=== PATIENT | male | born 1995 | race Caucasian/White ===

== ENCOUNTER 2017-06-12 16:48 | Emergency (ER) | payer SELFPAY ==
[2017-06-12] MEDS ORDERED: CLEOCIN 900 MG/50 mL 900 MG/50 ML BAG IV ONE (18:46)
[2017-06-12] MEDS ORDERED: NACL 0.9% 1000 ML 1,000 ML IV ONE (18:47)
[2017-06-12 19:10] LABS: Basophils % (Auto) 0.3 % (0.0-1.8); Eosinophils % (Auto) 0.1 % (0.0-4.3); Hemoglobin 14.5 gm/dl (11.8-15.2); Mean Corpuscular HGB Conc 35 % (32-34); Mean Corpuscular Hemoglobin 31 pg (28-32); Mean Corpuscular Volume 90 fl (84-94); Platelet Count 271 K/mm3 (140-440); Red Blood Count 4.66 M/mm3 (3.65-5.03); Red Cell Distribution Width 11.9 % (13.2-15.2); White Blood Count 9.8 K/mm3 (4.5-11.0)
[2017-06-12 19:30] LABS: Erythrocyte Sedimentation Rate 53 mm/Hr (0-20)
[2017-06-12 19:33] LABS: Alanine Aminotransferase 13 units/L (7-56); Albumin 4.2 g/dL (3.9-5); Albumin/Globulin Ratio 0.9 %; Alkaline Phosphatase 54 units/L (35-129); Anion Gap 20 mmol/L; BUN/Creatinine Ratio 15.55; Blood Urea Nitrogen 14 mg/dL (9-20); Calcium 9.4 mg/dL (8.4-10.2); Carbon Dioxide 26 mmol/L (22-30); Chloride 98.2 mmol/L (98-107); Glucose 81 mg/dL (75-100); Potassium 3.9 mmol/L (3.6-5.0); Sodium 140 mmol/L (137-145); Total Protein 8.9 g/dL (6.3-8.2)
--- NOTE | 2017-06-12 19:47 | Emergency Department Report ---
- General Chief complaint: Skin/Abscess/Foreign Body Stated complaint: ABSCESS Time Seen by Provider: 06/12/17 18:43 Source: patient Mode of arrival: Ambulatory Limitations: No Limitations - History of Present Illness Initial comments: pt is a22 y/o aam who hx of abscess buttocks x 1 yr last seen at [facility] for I&D 1 month ago , pt advises that he completed antibiotic however wound is still draining, pt endorses fever and chills at night , pt denies fever or chills at this time , pt advisies wound drainage yellow foul smelling. for past month. Onset/Timin -: year(s) Tetanus Up to Date: yes Location: buttocks (left gluteal fold ) Severity scale (0 -10): 5 Quality: burning, aching Consistency: constant Improves with: none Worsens with: palpation, movement, other (sitting on buttocks) Context: other (abscess for last year ) Associated symptoms: fever, chills, itching Treatments Prior to Arrival: bandages, antibiotic, other (tx at [facility] ) - Related Data Previous Rx's Medication Instructions Recorded Last Taken Type Clindamycin [Clindamycin CAP] 300 mg PO Q6H #40 capsule 06/12/17 Unknown Rx Lidocaine Topical 2% [Xylocaine 30 ml MM 2XWHS PRN #1 tube 06/12/17 Unknown Rx Topical 2%] traMADol [Ultram 50 MG tab] 50 mg PO Q6HR PRN #15 tablet 06/12/17 Unknown Rx Allergies Allergy/AdvReac Type Severity Reaction Status Date / Time No Known Allergies Allergy Unverified 06/12/17 17:20 Abscess Boil HPI - HPI Chief Complaint: Skin/Abscess/Foreign Body Stated Complaint: ABSCESS Time Seen by Provider: 06/12/17 18:43 Home Medications: Previous Rx's Medication Instructions Recorded Last Taken Type Clindamycin [Clindamycin CAP] 300 mg PO Q6H #40 capsule 06/12/17 Unknown Rx Lidocaine Topical 2% [Xylocaine 30 ml MM 2XWHS PRN #1 tube 06/12/17 Unknown Rx Topical 2%] traMADol [Ultram 50 MG tab] 50 mg PO Q6HR PRN #15 tablet 06/12/17 Unknown Rx Allergies/Adverse Reactions: Allergies Allergy/AdvReac Type Severity Reaction Status Date / Time No Known Allergies Allergy Unverified 06/12/17 17:20 ED Review of Systems ROS: Stated complaint: ABSCESS Other details as noted in HPI Constitutional: denies: chills, fever Eyes: denies: eye pain, eye discharge, vision change ENT: denies: ear pain, throat pain Respiratory: denies: cough, shortness of breath, wheezing Cardiovascular: denies: chest pain, palpitations Endocrine: no symptoms reported Gastrointestinal: denies: abdominal pain, nausea, diarrhea Genitourinary: denies: urgency, dysuria Musculoskeletal: denies: back pain, joint swelling, arthralgia Skin: lesions (abscess left buttocks ) Neurological: denies: headache, weakness, paresthesias Psychiatric: denies: anxiety, depression Hematological/Lymphatic: denies: easy bleeding, easy bruising ED Past Medical Hx - Past Medical History Previous Medical History?: No Hx Renal Disease: Yes - Surgical History Past Surgical History?: Yes Hx Appendectomy: Yes - Social History Smoking Status: Never Smoker Substance Use Type: Marijuana - Medications Home Medications: Home Medications Medication Instructions Recorded Confirmed Last Taken Type Clindamycin [Clindamycin CAP] 300 mg PO Q6H #40 capsule 06/12/17 Unknown Rx Lidocaine Topical 2% [Xylocaine 30 ml MM 2XWHS PRN #1 tube 06/12/17 Unknown Rx Topical 2%] traMADol [Ultram 50 MG tab] 50 mg PO Q6HR PRN #15 tablet 06/12/17 Unknown Rx ED Physical Exam - General Limitations: No Limitations General appearance: alert, in no apparent distress - Head Head exam: Present: atraumatic, normocephalic - Eye Eye exam: Present: normal appearance - ENT ENT exam: Present: mucous membranes moist - Neck Neck exam: Present: normal inspection - Respiratory Respiratory exam: Present: normal lung sounds bilaterally. Absent: respiratory distress - Cardiovascular Cardiovascular Exam: Present: regular rate, normal rhythm. Absent: systolic murmur, diastolic murmur, rubs, gallop - GI/Abdominal GI/Abdominal exam: Present: soft, normal bowel sounds - Rectal Rectal exam: Present: normal rectal tone, tenderness, other (condyloma ) - Extremities Exam Extremities exam: Present: normal inspection - Back Exam Back exam: Present: normal inspection, full ROM. Absent: tenderness, CVA tenderness (R), CVA tenderness (L), muscle spasm, paraspinal tenderness, vertebral tenderness, rash noted - Neurological Exam Neurological exam: Present: alert, oriented X3, CN II-XII intact, normal gait, reflexes normal - Psychiatric Psychiatric exam: Present: normal affect, normal mood - Skin Skin exam: Present: other (left buttock abscess 1x2 draining purulent ) ED Course Vital Signs 06/12/17 06/12/17 17:17 20:31 Temperature 98.6 F 100.1 F H Pulse Rate 117 H 109 H Respiratory 18 18 Rate Blood Pressure 124/83 Blood Pressure 123/83 [Left] O2 Sat by Pulse 99 Oximetry ED Medical Decision Making - Lab Data Result diagrams: 06/12/17 18:57 06/12/17 18:57 Laboratory Tests 06/12/17 06/12/17 06/12/17 18:57 18:57 18:57 WBC 9.8 RBC 4.66 Hgb 14.5 Hct 42.0 MCV 90 MCH 31 MCHC 35 H RDW 11.9 L Plt Count 271 Lymph % (Auto) 25.7 Deuel % (Auto) 10.0 H Eos % (Auto) 0.1 Baso % (Auto) 0.3 Lymph # 2.5 Deuel # 1.0 H Eos # 0.0 Baso # 0.0 Seg Neutrophils % 63.9 Seg Neutrophils # 6.2 ESR 53 Sodium 140 Potassium 3.9 Chloride 98.2 Carbon Dioxide 26 Anion Gap 20 BUN 14 Creatinine 0.9 Estimated GFR > 60 BUN/Creatinine Ratio 15.55 Glucose 81 Lactic Acid 1.40 Calcium 9.4 Total Bilirubin 1.10 AST 22 ALT 13 Alkaline Phosphatase 54 C-Reactive Protein 7.50 H Total Protein 8.9 H Albumin 4.2 Albumin/Globulin Ratio 0.9 - Radiology Data Radiology results: report reviewed, image reviewed small perirectal abscess - Medical Decision Making pt is a22 y/o aam who hx of abscess buttocks x 1 yr last seen at [facility] for I&D 1 month ago , pt advises that he completed antibiotic however wound is still draining, pt endorses fever and chills at night , pt denies fever or chills at this time , pt advisies wound drainage yellow foul smelling. for past month. pt previously treated at [facility] via general surgery tx: CT abd pelvis with contrast negative for colorectal abscess, exam today : left buttock ascess open draining purulent drainage, no flucutance noted at this time wound irrigated with steral saline solution 200 cc, wound probed with blunt forceps , depth 1cm superficial no colorectal involvement, wound packed with iodoform , dressing with 4x4 and silk tape, rectal exam normal tone prostate smooth round nontender, condlyomas noted exterior no hemorrhoids, no bleeding, pt given wound care instructions, pt verbalized agreement and understanding of same , labs, ct noted normal ,CT: Abd and pelvis: no colorectal abscess bilat inguinal lymph, no plan: pt does live in [facility] , referred to [facility] Primary care will follow up [facility] in [place] tomorrow for referral to general surgery clinic abscess is recurrent for 1 yrs, pt advises HIV negative as per negative focus last month , is not currently sexually active, will tx with clindamycin po , lidocaine viscus prn pain to condylomas, will follow up with primary for definitive tx after abscess is address by general surgery. pt verbalized agreement and understanding with treatment plan. Critical care attestation.: If time is entered above; I have spent that time in minutes in the direct care of this critically ill patient, excluding procedure time. ED Disposition Clinical Impression: Condyloma, Abdominal abscess Disposition: TO HOME OR SELFCARE Is pt being admited?: No Does the pt Need Aspirin: No Condition: Good Instructions: Genital Warts (ED), Abscess (ED) Additional Instructions: follow up with [facility] in [place] tomorrow for referral to general surgery and [facility] Primary Care [address] [facility] [place] [address] Prescriptions: Clindamycin [Clindamycin CAP] 300 mg PO Q6H #40 capsule Lidocaine Topical 2% [Xylocaine Topical 2%] 30 ml MM 2XWHS PRN #1 tube PRN Reason: Pain traMADol [Ultram 50 MG tab] 50 mg PO Q6HR PRN #15 tablet PRN Reason: Pain Referrals: PRIMARY CARE,MD [Primary Care Provider] - 3-5 Days Forms: Work/School Release Form(ED) Time of Disposition: 20:58
[2017-06-12] MEDS ORDERED: TORADOL IV ONE (20:02)
[2017-06-12 20:34] VITALS: BP 123/83
--- NOTE | 2017-06-12 20:50 | Cat Scan Report ---
FINAL REPORT PROCEDURE: CT ABDOMEN PELVIS WO CON TECHNIQUE: Computerized axial tomography of the abdomen and pelvis was performed without intravenous contrast. This study is performed without intravascular contrast material and its sensitivity for abdominal and pelvic pathology, including neoplasms, inflammation, abscess, free fluid, thrombosis, arterial dissection and infarction, is reduced compared with a contrast enhanced study. HISTORY: rectal abscess COMPARISON: No prior studies are available for comparison. FINDINGS: Visualized lower thorax: No significant abnormality. Liver: Mild diffuse low attenuation of the liver suggests fatty infiltration. Right hepatic lobe measures 19 centimeters craniocaudal. Spleen: Normal size and attenuation. Gallbladder and biliary system: Normal. Pancreas: Normal. Adrenals: Normal. Kidneys: No hydronephrosis or urolithiasis bilaterally. GI tract: Appendix is not diagnostically visualized. No bowel obstruction or inflammation is seen. Lymph nodes and mesentery: There are bilateral enlarged inguinal lymph nodes, which measure up to 14 millimeter short axis. Mildly prominent diffuse mesenteric nodes are also noted. Vasculature: Normal. Bladder: Normal. Reproductive organs: Normal. Peritoneum: No free fluid. Musculoskeletal structures: No significant abnormality. Other: Along the medial left gluteal cleft there is a ovoid soft tissue attenuation subcutaneous area, compatible with phlegmon or early abscess formation. This measures 2.8 centimeters AP x 1.9 centimeters transverse x 3.8 centimeters craniocaudal. IMPRESSION: Left perianal small phlegmon or early abscess formation. No definite drainable fluid collection is seen. Bilateral inguinal adenopathy. Mild mesenteric adenopathy.
[2017-06-12 21:09] LABS: Bacteria,Urine 1+ /HPF (Negative); Bilirubin,Urine NEG (Negative); Blood,Urine SM (Negative); Ketones,Urine 80 mg/dL (Negative); Leukocyte Esterase,Urine NEG (Negative); Mucus,Urine 1+ /HPF; Nitrite,Urine NEG (Negative)
== END 2017-06-12 21:22 | disposition home or self-care (01) ==
LOC: ED 16:48
DX: A63.0 Anogenital (venereal) warts (principal); L02.31 Cutaneous abscess of buttock; F12.10 Cannabis abuse, uncomplicated
CPT/HCPCS: 36415; 74176; 80053; 81001; 82140; 85025; 85652; 86140; 87040; 96361; 96374; 96375; 99284; J1885; J7030